=== PATIENT | female | born 1960 | race Caucasian/White ===

== ENCOUNTER 2019-12-04 09:00 | Outpatient (REF) | payer SELFPAY ==
[2019-12-06 20:50] LABS: COVID-19 RT-PCR Result NEGATIVE (Negative)
== END 2019-12-04 09:20 ==
LOC: LBN 09:00
PROVIDERS: Visit Provider Nurse Practitioner Adult Health
DX: Z11.59 Encounter for screening for other viral diseases (principal)
CPT/HCPCS: U0003